=== PATIENT | male | born 1990 | race Caucasian/White ===

== ENCOUNTER 2024-12-04 11:18 | Emergency (ER) | payer OTHER, SELFPAY ==
--- OUTSIDE RECORDS SUMMARY | 2024-12-04 11:21 | XMS_ITS | Data Portability ---
Author Organization [place] - [facility], autoContract - E [facility] Address [address] [place] [address] Assessment Encounter Date Assessment Date Assessment LastModified by Organization Details LastModified Time 11/25/2024 11/25/2024 ASSESSMENT: Patient is a good candidate for conservative care and the prognosis is for a favorable outcome that achieves the patients' goals. We discussed etiology, activity modifications, home care, and other treatment options. Initially, it is recommended that the patient receive in-office treatment 1 times per week for 8 weeks at which time a re-evaluation will be performed to determine an appropriate change in plan. Initially, treatment will focus on joint manipulation to restore range of motion and reduce pain. We will slowly progress to therapeutic exercises and activities to improve function, strength, and stability may also be used as warranted. If the patient is not responding as expected, more invasive procedures will be discussed along with a referral. All considerations above were discussed with the patient and questions answered to satisfaction. If the patient should have any additional questions, or should the condition evolve or worsen, the patient should not hesitate to contact our office. ASSESSMENT: Patient is a good candidate for conservative care and the prognosis is for a favorable outcome that achieves the patients' goals. We discussed etiology, activity modifications, home care, and other treatment options. Initially, it is recommended that the patient receive in-office treatment 1 times per week for 8 weeks at which time a re-evaluation will be performed to determine an appropriate change in plan. Initially, treatment will focus on joint manipulation to restore range of motion and reduce pain. We will slowly progress to therapeutic exercises and activities to improve function, strength, and stability may also be used as warranted. If the patient is not responding as expected, more invasive procedures will be discussed along with a referral. All considerations above were discussed with the patient and questions answered to satisfaction. If the patient should have any additional questions, or should the condition evolve or worsen, the patient should not hesitate to contact our office. ecram Not available 11/25/2024 18:24:52 Plan of Treatment Reminders Order Date Submit Date Provider Last Modified By Organization Details Last Modified Time Details Appointments None record ed. Lab None record ed. Referral None record ed. Procedures None record ed. Surgeries None record ed. Imaging None record ed. Medication Orders None record ed. Patient TargetsNo targets recorded. Patient InstructionsNo instructions recorded. Reason for Referral None Reported. Problems Name Problem SNOMED Code Status Onset Date Resolution Date Notes Provider Name and Address Organization Details Recorded Time Thoracic segmental dysfunction 013459211 Active 2023 Irving Mendez [place], [place] [address], [place], [address], [facility] 4 18:24:49 Low back pain 249845202 Active 2023 Irving Uriarte, [place] [address], [place], [address], [facility] 4 18:24:49 Lumbar segmental dysfunction 485419446 Active 2023 Irving Uriarte, [place] [address], [place], [address], [facility] 4 18:24:49 Somatic dysfunction of sacral spine 788671723 Active 2023 Irving Uriarte, ERIK [address], [place], [address], [facility] 4 18:24:49 Cervical segmental dysfunction 320851108 Active 2023 Irving Uriarte, [place] [address], [place], [address], [facility] 4 18:24:52 Neck pain 05640163 Active 2023 Irving Uriarte, [place] [address], [place], [address], [facility] 4 18:24:52 Problem Notes None recorded. Procedures Surgical History Date Name Laterality Status Provider Name and Address Organization Details Recorded Time 45538: Spinal manipulation , 3 to 4 regions completed Irving Uriarte [place] [address], [place], [address] 11/25/2024 18:26:19 Imaging Results None recorded. Procedure Notes None recorded. Medical Equipment None Reported. Vitals None Recorded Social History None recorded. Functional Status None recorded. Mental Status None recorded. Family History Nothing Reported. Medical History No medical history recorded. Past Encounters Encounter ID Performer Location Encounter Start Date Encounter Closed Date Diagnosis/Indication Diagnosis SNOMED-CT Code Diagnosis ICD10 Code [id number] ERIK Perez [facility] [address] [place] [address] 11/25/2024 17:42:06 11/25/2024 18:26:44 Lumbar segmental dysfunction 729578286 M99.03 Low back pain 823898168 M54.50 Somatic dy sfunction of sacral spine 023603678 M99.04 Thoracic s egmental dysfunction 573017474 M99.02 Cervical s egmental dysfunction 939167471 M99.01 Neck pain 20997080 M54.2 Health Concerns Section Related Observation LastModified by Organization Detai ls LastModified Time None Recorded Concern Status LastModified by Organization Details LastModified Time None Recorded Advance Directives Directive None Recorded Payers Encounter Date Sequence Insurance Name Policy Number Policy Gross Covered Member ID Gross Member ID Guarantor Name 11/25/2024 1 [facility] ([facility]) [id number] Saurav Grund [id number] Saurav Grund Notes Date Note Type Note Provider Name and Address Organization Details Recorded Time 11/25/2024 text/html HPI - Cervical SpineReported bypatient.Location: right Quality:aching Severity:moderate Duration:1 weeks Timing:gradual Alleviating Factors:chiropracti c care; rest Aggravating Factors:bending; twisting/turning Associated Symptoms:no numbness/tinglingHP I - Lumbar SpineReported bypatient.Location: right; With radiation to knee Quality:aching Severity:moderate Timing:recurrent Context:bending; lifting; twisting Aggravating Factors:lifting; carrying; bending/squatting Alleviating Factors:rest Irving Uriarte [place] [address], [place], [address], [facility] - [facility] 11/25/2024 18:26:42
--- OUTSIDE RECORDS SUMMARY | 2024-12-04 11:21 | XMS_ITS | Continuity of Care Document ---
Author Organization [place] - [facility] Address [address] [place] [address] Assessment Encounter Date Assessment Date Assessment LastModified [...] Organization Details Recorded Time Thoracic segmental dysfunction 366410376 Active 2023 Irving Mendez [place], [place] [address], [place], [address], Counts include 234 beds at the [facility] 4 18:24:49 Low back pain 427150597 Active 2023 Irving Uriarte, [place] [address], [place], [address], Counts include 234 beds at the [facility] 4 18:24:49 Lumbar segmental dysfunction 999342247 Active 2023 Irving Uriarte, [place] [address], [place], [address], Counts include 234 beds at the [facility] 4 18:24:49 Somatic dysfunction of sacral spine 222116304 Active 2023 Irving Uriarte, [place] [address], [place], [address], Counts include 234 beds at the [facility] 4 18:24:49 Cervical segmental dysfunction 769880256 Active 2023 Irving Mendez [place], [place] [address], [place], [address], Counts include 234 beds at the [facility] 4 18:24:52 Neck pain 93978979 Active 2023 Irving Uriarte, [place] [address], [place], [address], Counts include 234 beds at the [facility] 4 18:24:52 Problem Notes None recorded. Procedures Surgical History Date Name Laterality Status Provider Name and Address Organization Details Recorded Time 30020: Spinal manipulation , 3 to 4 regions completed Irving Uriarte [place] [address], [place], [address], Counts include 234 beds at the [facility] 11/25/2024 18:26:19 Imaging Results None recorded. Procedure Notes None recorded. Medical Equipment None Reported. Vitals None Recorded Social History None recorded. Functional Status None recorded. Mental Status None recorded. Family History Nothing Reported. Medical History No medical history recorded. Past Encounters Encounter ID Performer Location Encounter Start Date Encounter Closed Date Diagnosis/Indication Diagnosis SNOMED-CT Code Diagnosis ICD10 Code [id number] ERIK Perez [facility] [address] [place] [address] 11/25/2024 17:42:06 11/25/2024 18:26:44 Lumbar segmental dysfunction 811432577 M99.03 Low back pain 887401263 M54.50 Somatic dy sfunction of sacral spine 658541577 M99.04 Thoracic s egmental dysfunction 803281343 M99.02 Cervical s egmental dysfunction 676914555 M99.01 Neck pain 97282120 M54.2 Health Concerns Section Related Observation LastModified by Organization Detai ls LastModified Time None Recorded Concern Status LastModified by Organization Details LastModified Time None Recorded Payers Encounter Date Sequence Insurance Name Policy Number Policy Gross Covered Member ID Gross Member ID Guarantor Name 11/25/2024 1 [facility] [id number] Saurav Grund [id number] Saurav Grund Notes Date Note Type Note [...] bending/squatting Alleviating Factors:rest Irving Uriarte [place] [address], [place], [address], [facility] 11/25/2024 18:26:42
--- OUTSIDE RECORDS SUMMARY | 2024-12-04 11:21 | XMS_ITS | Clinical Summary ---
Author Organization [facility] Address [place], [place] [address] Care Team Providers Care Riding Coach Name Role Phone Pcp, No Primary Care Provider Unavailabl e Allergies No known active allergies Medications traZODone (DESYREL) 100 mg tabletIndicatio ns:Primary insomnia Take 1.5 Tablets (150 mg) by mouth at bedtime. 135 Tablet 1 05/03/2024 Active Active Problems Problem Noted Date Diagnosed Date Controlled substance agreement signed 01/31/2021 Primary insomnia 01/31/2021 Attention deficit disorder with hyperactivity(31 4.01) Immunizations Name Administration Dates Next Due DTP 05/17/1992,06/09/1991,02/23/1991 ,1990 DTaP 07/07/1996 HIB HbOC (HibTITER) 02/03/1992,06/09/1991,1990,1990 Hepatitis B (Peds) 10/31/1997,06/01/1997, 997 MMR 07/03/2003,02/03/1992 Oral Polio Vaccine 07/07/1996,05/17/1992, 991,1990 Td (Age >=7 Years) 07/03/2003 Tdap 02/16/2023 Family History Medical History Relation Name Comments Heart Disease Father [place] at age 40 y ears Hyperlipidemia Father Hypertension Father Hyperlipidemia Maternal Grandfather Hyperlipidemia Maternal Grandmother Hypertension Maternal Grandmother Diabetes No Family History Relation Name Status Comments Father Maternal Grandfather Maternal Grandmother Social History Tobacco Use Types Packs/Day Years Used Date Smoking Tobacco: Never Smokeless Tobacco: Current Chew Last attempted to quit: 10/18/2013 Tobacco Cessation:Ready to Q uit: No; Counseling Given: Yes Comments:Patient will chew every 3-4 months Alcohol Use Standard Drinks/Week Comments Yes 0 (1 standard drink = 0.6 oz pur e alcohol) infrequent beer PHQ-2 Answer Date Recorded PHQ-2 TOTAL SCORE 0 03/31/2024 Financial Resource Strain Answer Date R ecorded Difficulty of Paying Living Expenses Not on file 11/30/2021 Difficulty of Paying Living Expenses Not on file 11/30/2021 Sex and Gender Information Value Date Recorded Sex Assigned at Not on file 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 Gender Identity Not on file Sexual Orientation Not on file Obstetrics History Last Filed Vital Signs Vital Sign Reading Time Taken Comments Blood Pressure 115/69 04/28/2023 1:20 PM CDT Pulse 71 04/28/2023 1:20 PM CDT Temperature 36.8 C (98.3 F) 04/28/2023 1:20 PM CDT Respiratory Rate - - Oxygen Saturation 97% 04/28/2023 1:20 PM CDT Inhaled Oxygen Concentration - - Weight 101.1 kg (222 lb 14.4 oz) 04/28/2023 1:20 PM CDT Height 178.4 cm (5' 10.25) 10/31/2021 5:[address] Body Mass Index 31.76 10/31/2021 5:00 PM AED TRAINER Plan of Treatment Health Maintenance Due Date Last Done Comments HIV for age 15-65 2005 Hepatitis C screening for ag e 18-79 2008 BMI (ht and wt on same day) for age 18+ 10/31/2022 10/31/2021, 01/31/2021, 12/31/2020 COVID-19 vaccine series (2023- season) 2024 Influenza for age 9-49 07/31/2024 Depression screening for age 12+ 03/31/2025 03/31/2024, 06/20/2022, 12/31/2020 Tetanus booster 02/16/2033 02/16/2023, 07/03/2003 Tdap Completed 02/16/2023 Pneumococcal series for age 6-49 Aged Out No longer eligible b ased on patient's age to complete this topic Insurance [facility] INDIVIDUAL AND FAMILY PLANS Care Teams Riding Coach Relationship Specialty Start Date End Date Pcp, No . PCP - General 05/24/24
[2024-12-04 11:25] VITALS: BP 137/84; PULSE 94; RESP 18; O2SAT 98; BMI 33.2
--- NOTE | 2024-12-04 11:50 | ED.WOUNDLAC ---
HPI - Wound/Laceration General Date Seen: 12/04/24 Chief Complaint: Laceration/Wound Stated Complaint: Cut on right hand Time Seen by Provider: 12/04/24 11:26 Source: patient Mode of arrival: ambulatory Limitations: no limitations History of Present Illness HPI narrative: Patient is a 34-year-old male presenting to emergency department for cut to his right palm. Cut does about the penitentiary point between the thumb and patient's transfer the index finger within the palmar crease. Is able to move his fingers fully but does state the lateral aspect of his knee left index finger does feel mildly numb. Is here himself with a circular saw. Unsure when his last tetanus shot was. No other injuries noted. She Related Data Home Medications ?Medication ?Instructions ?Recorded ?Confirmed trazodone 100 mg tablet mg PO 12/04/24 Previous Rx's ?Medication ?Instructions ?Recorded cephalexin 500 mg capsule 500 mg PO QID #20 caps 12/04/24 Allergies Allergy/AdvReac Type Severity Reaction Status Date / Time No Known Drug Allergies Allergy Verified 12/04/24 11:25 Review of Systems Narrative: Pertinent systems reviewed and were negative unless stated in HPI Exam Narrative: Exam Narrative: Const: Well-nourished, Well-developed, in mild distress Eyes: PERRL, no conjunctival injection, and symmetrical lids HENT: Atraumatic external nose and ears. Moist mucous membranes. MSK:Extremities w/o deformity, Normal Active ROM Skin: Warm, Dry. 3 cm laceration to right palm between the thumb and index finger going along the palmar crease Neuro: Normal Muscle tone, No focal neurological deficits. Psych: Awake, Alert, & Oriented x3. Appropriate mood and affect. Const: Vital Signs, click to edit/add: Vital Signs - 24 hr 12/04/24 11:25 Pulse Rate [Pulse Oximeter] 94 Respiratory Rate 18 Blood Pressure [Le ft Upper Arm] 137/84 Pulse Oximetry 98 Oxygen Delivery Me thod Room Air Course Vital Signs Vital signs: Initial Vital Signs Pulse Rate 94 12/04/24 11:25 Respiratory Rate 18 12/04/24 11:25 Blood Pressure 137/84 12/04/24 11:25 Blood Pressure Mean 101 12/04/24 11:25 Pulse Oximetry 98 12/04/24 11:25 Oxygen Delivery Method Room Air 12/04/24 11:25 Vital Signs Pulse Rate 94 12/04/24 11:25 Respiratory Rate 18 12/04/24 11:25 Blood Pressure 137/84 12/04/24 11:25 Pulse Oximetry 98 12/04/24 11:25 Oxygen Delivery Method Room Air 12/04/24 11:25 Pulse Rate 94 12/04/24 11:25 Respiratory Rate 18 12/04/24 11:25 Blood Pressure 137/84 12/04/24 11:25 Pulse Oximetry 98 12/04/24 11:25 Oxygen Delivery Method Room Air 12/04/24 11:25 MDM - Wound/Laceration MDM Narrative Medical decision making narrative: Patient is a 34-year-old male presenting for laceration to his right palm. This was done with a circular saw. It was extensively clean. He has full movement of the hand. No signs of tendinous damage. He is otherwise doing well and the pain is tolerable he states. Laceration repair was done and he tolerated the procedure well. His tetanus was updated. Considering the nature of the wound I will give him prophylactic antibiotics. He is agreeable to this plan. Discharge Plan Discharge Clinical Impression: Laceration Patient Disposition: Home, Self-Care Condition: Stable Instructions: Laceration (ED) Additional Instructions: Follow-up with your primary care provider or urgent care in the next 7 days to have the 6 sutures removed. For next 6 months, once sutures are removed, whenever you go outside put a dab of sunscreen over the laceration site to improve scar appearance. Topical antibiotics are not necessary at this time. Patient can shower but do not submerge the laceration until sutures are removed Take the antibiotics as directed. As we spoke about the hand to get infected bad in fast. You will likely see some redness tomorrow but if it continues to expand or see streaking up her hand return for re-evaluation. Also return if you start having severe pain in the area. Prescriptions: New cephalexin 500 mg capsule 500 mg PO QID Qty: 20 0RF No Action trazodone 100 mg tablet PO Follow Up/Referrals: Semaj Goldman MD [Primary Care Provider] - Stand Alone Forms: MyHealth Info Instructions Procedures Laceration Right palm: Name of person performing procedure: Jerardo Casas Site: hand (palm) Side (If applicable): right Size (cm): 3 Description: linear and stellate Depth: simple, single layer Local Anesthetic: lidocaine 1% Amount of anesthesia used (mL): 4 Pre-repair: wound explored, irrigated extensively and deep structures intact Skin layer closed with: nylon Size (cm): 4-0 Number of sutures: 6 Technique: simple, interrupted
--- OUTSIDE RECORDS SUMMARY | 2024-12-04 12:26 | XMS_ITS | Clinical Summary ---
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 PCP - General 05/24/24
[2024-12-04] MEDS: TETANUS/DIPHTH/PERTUSSIS 0.5 ML SYRINGE IM (12:28)
== END 2024-12-04 12:35 | disposition home or self-care (01) ==
PROVIDERS: Emergency Provider Student in an Organized Health Care Education/Training Program; PCP Family Medicine
DX: S61.411A Laceration without foreign body of right hand, initial encounter (principal); W31.2XXA Contact with powered woodworking and forming machines, initial encounter; Z23 Encounter for immunization
CPT/HCPCS: 12002; 90471; 90715; 99283; 99284